=== PATIENT | female | born 1975 | race Caucasian/White ===

== ENCOUNTER 2018-04-15 09:29 | Emergency (ER) | payer OTHER, MEDICAID | END 2018-04-15 10:26 | disposition home or self-care (01) | LOC: FTE 09:29 | DX: J02.9 Acute pharyngitis, unspecified (principal) | CPT/HCPCS: 99283; Z7502 ==

== ENCOUNTER 2019-01-15 12:19 | Day surgery (SDC) | payer OTHER ==
[2019-01-15] MEDS ORDERED: OXYMETAZOLINE 0.05% 15 ML NAS SPRAY NASAL (15:26)
[2019-01-15] MEDS ORDERED: PROPOFOL 20 ML (15:31)
[2019-01-15] MEDS ORDERED: CEFAZOLIN 1 GM INJ (15:31)
[2019-01-15] MEDS ORDERED: LIDOCAINE 100 MG SYRINGE (15:31)
[2019-01-15] MEDS ORDERED: MIDAZOLAM 1 MG/ML 2 ML INJ (15:32)
[2019-01-15] MEDS ORDERED: FENTAnyl 50 MCG/ML VIAL ×2 (15:32→15:58)
[2019-01-15] MEDS ORDERED: DESFLURANE 15 MIN (15:40)
[2019-01-15] MEDS ORDERED: SUGAMMADEX SODIUM 200 MG/2 ML VIAL IV (15:40)
[2019-01-15] MEDS ORDERED: HYDROmorphONE 2 MG/ML SYG (16:15)
[2019-01-15] MEDS ORDERED: LABETALOL HCL 20MG INJ (16:20)
[2019-01-15] MEDS ORDERED: HYDROmorphONE 1 MG/5 ML IV SYRINGE IV ×2 (16:30)
[2019-01-15] MEDS ORDERED: ONDANSETRON 4 MG INJ IV (16:30)
[2019-01-15] MEDS ORDERED: FENTAnyl 50 MCG/ML VIAL IV ×2 (16:30)
[2019-01-15] MEDS ORDERED: MEPERIDINE 25 MG INJ IV (16:30)
[2019-01-15] MEDS ORDERED: LABETALOL HCL 20MG INJ IV (16:30)
[2019-01-15] MEDS ORDERED: hydrALAzine 20 MG INJ IV (16:30)
[2019-01-15] MEDS: COCAINE 4% 4 ML TOP ×2 (16:33→16:45)
[2019-01-15] MEDS: EPINEPHrine 1 MG INJ (16:36)
[2019-01-15] MEDS: LIDOCAINE 1%/EPI (1:100,000) (MDV) 20 ML (16:37)
[2019-01-15] MEDS: OXYMETAZOLINE 0.05% 15 ML NAS SPRAY NASAL (16:38)
[2019-01-15] MEDS: BACITRACIN/POLYMYXIN 28.35 GM OINT TOP (16:38)
[2019-01-15] MEDS ORDERED: DEXAMETHASONE 4 MG/ML 5 ML INJ (16:39)
[2019-01-15] MEDS: TRIAMCINOLONE ACET 40 MG/ML INJ ×3 (16:45→16:54)
[2019-01-15] MEDS ORDERED: ESMOLOL 10 ML (16:57)
[2019-01-15] MEDS: HYDROCORTISONE 100 MG INJ (17:01)
[2019-01-15] MEDS ORDERED: morphine 2 MG INJ IV (17:30)
[2019-01-15] MEDS: METOCLOPRAMIDE 10 MG INJ IV (19:17)
[2019-01-15] MEDS: OXYCODONE/ACETAMINOPHEN (5/325) TAB PO (19:18)
== END 2019-01-15 19:39 | disposition home or self-care (01) ==
LOC: SDS 12:19
DX: J32.2 Chronic ethmoidal sinusitis (principal); J32.1 Chronic frontal sinusitis; J33.8 Other polyp of sinus
CPT/HCPCS: 31253; 88304; 88312